=== PATIENT | female | born 1990 | race Two or more races ===

== ENCOUNTER 2022-03-13 00:18 | Emergency (ER) | payer MEDICAID | END 2022-03-13 00:37 | disposition left against medical advice (07) | LOC: ER 00:18 | DX: O20.8 Other hemorrhage in early pregnancy (principal); Z3A.16 16 weeks gestation of pregnancy; Z53.21 Procedure and treatment not carried out due to patient leaving prior to being seen by health care provider ==

== ENCOUNTER 2024-07-29 15:58 | Emergency (ER) | payer MEDICAID ==
[~2024-07-29] VITALS: Ht 160 cm; Wt 68.5 kg
[2024-07-29 16:28] VITALS: BP 113/65; PULSE 100; RESP 18; TEMP 98; O2SAT 97
[2024-07-29 16:29] VITALS: PULSE 117
--- NOTE | 2024-07-29 16:29 | ED.PDOC ---
History of Present Illness HPI Comments 34-year-old female with PMHx Asthma presents with a chief complaint of SOB and nausea while currently being . Patient states that she is currently 37 weeks . Patient reports that she was sent over from Labor and Delivery to be cleared for her SOB prior to their own evaluation. Patient is sating well on room air and does not need/use supplemental oxygen. Patient endorses nausea, but denies any active emesis episodes. Vital signs were stable on arrival. Chief Complaint: Shortness of Breath Time Seen by MD: 16:10 Primary Care Provider: CAR Reviewed Notes: Nurses Notes, Medications, Allergies Allergies: Coded Allergies: NO KNOWN ALLERGIES (Unverified , 07/29/24) Information Source: Patient Mode of Arrival: Ambulatory Severity: Moderate Timing: Days Duration: Since onset Prehospital treatment: None Past Medical History PAST MEDICAL HISTORY: Asthma Past Medical History (Other): Patient states she is currently 37 weeks . Surgical History: Denies all surgeries MARRIAGE AND FAMILY TEACHER History: Denies all MARRIAGE AND FAMILY TEACHER Hx Family History Family History: Reviewed,noncontributory to illness Social History Smoker: Non-Smoker Alcohol: Denies ETOH Use Drugs: Denies Drug Use Lives In: Home Constitutional: denies: chills, diaphoresis, fatigue, fever, malaise, sweats, weakness, others EENTM: denies: blurred vision, double vision, ear bleeding, ear discharge, ear drainage, ear pain, ear ringing, eye pain, eye redness, hearing loss, mouth p ain, mouth swelling, nasal discharge, nose bleeding, nose congestion, nose pain, photophobia, tearing, throat pain, throat swelling, voice changes, others Respiratory: reports: shortness of breath; denies: cough, hemoptysis, orthopnea, SOB at rest, SOB with excertion, stridor, wheezing, others Cardiovascular: reports: chest pain; denies: dizzy spells, diaphoresis, Dyspnea on exertion, edema, irregular heart beat, left arm pain, lightheadedness, palpitations, PND, syncope, others Gastrointestinal: reports: nausea; denies: abdomen distended, abdominal pain, blood streaked bowels, constipated, diarrhea, dysphagia, difficulty swallowing, hematemesis, melena, poor appetite, poor fluid intake, rectal bleeding, rectal pain, vomiting, others Genitourinary: reports: ; denies: abnormal vagina bleeding, burning, dyspareunia, dysuria, flank pain, frequency, hematuria, incontinence, pain, vagina discharge, urgency, others Neurological: denies: dizziness, fainting, headache, left sided numbness, left sided weakness, numbness, paresthesia, pre-existing deficit, right sided num bness, right sided weakness, seizure, speech problems, tingling, tremors, weakness, others Musculoskeletal: denies: back pain, gout, joint pain, joint swelling, muscle pain, muscle stiffness, neck pain, others Integumetry: denies: bruises, change in color, change in hair/nails, dryness, laceration, lesions, lumps, rash, wounds, others Allergic/Immunocompromised: denies: Difficulty Healing, Frequent Infections, Hives, Itching, others Hematologic/Lymphatic: denies: anemia, blood clots, easy bleeding, easy bruising, swollen glands, others Endocrine: denies: excessive hunger, excessive sweating, excessive thirst, excessive urination, flushing, intolerance to cold, intolerance to heat, unexplained weight gain, unexplained weight loss, others Psychiatric: denies: anxiety, bipolar disorder, depression, hopeless, panic disorder, schizophrenia, sleepless, suicidal, others All Other Systems: Reviewed and Negative Physical Exam General Appearance: Moderate Distress (Tmsa-rh-punvdust distress due to some mild shortness a breath and chest pain concerns.), Normal HEENT: Normal ENT Inspection, Pharynx Normal, TMs Normal Neck: Full Range of Motion, Non-Tender, Normal, Normal Inspection Respiratory: Chest Non-Tender, Lungs Clear, No Accessory Muscle Use, No Respiratory Distress, Normal Breath Sounds, Other (Unremarkable auscultation bilateral lung peña.) Cardiovascular: No Edema, No JVD, No Murmur, No Gallop, Normal Peripheral Pulses, Regular Rate/Rhythm Breast Exam: Deferred Gastrointestinal: Other (Patient displays a very advanced . No signs of trauma.) Genitalia: Deferred Pelvic: Deferred Rectal: Deferred Extremities: No calf tenderness, Normal capillary refill, Normal inspection, Normal range of motion, Non-tender, No pedal edema Neurologic: Alert, No Motor Deficits, Normal Affect, Normal Mood, No Sensory Deficits Cerebellar Function: Normal Reflexes: Normal Skin: Dry, Normal Color, Warm Lymphatic: No Adenopathy Was a procedure done? Was a procedure done?: No EKG EKG : Pulse Rate (adult): 117 [place]: Normal Cardiac Rhythm: ST Block: None Hypertrophy: None ST: Normal Differential Dx Considerations may include: Sepsis, electrolyte abnormality, upper respiratory infection, pain of , chest pain, shortness of breath X-Ray, Labs, Meds, VS Vital Signs Date Time Temp Pulse Resp B/P (MAP) Pulse Ox O2 Delivery O2 Flow Rate FiO2 07/29/24 17:04 18 96 Room Air* 0 21 07/29/24 16:29 117 07/29/24 16:28 100 18 97 Room Air* 0 21 07/29/24 16:28 98.0 100 18 113/65 (81) 97 98.0 07/29/24 16:12 117 07/29/24 15:59 98.0 99 18 129/75 (93) 100 Lab Test 07/29/24 16:23 Range/Units White Blood Count 7.9 4.4-10.8 10^3/uL Red Blood Count 4.49 4.0-5.20 10^6/uL Hemoglobin 11.3 L 12.2-16.2 g/dL Hematocrit 35.4 L 36.0-46.0 % Mean Corpuscular Volume 78.8 L 80.0-100.0 fL Mean Corpuscular Hemoglobin 25.1 L 28.0-32.0 pg Mean Corpuscular Hemoglobin Concent 31.8 L 32.0-36.0 g/dL Red Cell Distribution Width 16.0 H 11.8-14.3 % Platelet Count 158 140-450 10^3/uL Mean Platelet Volume 10.2 6.9-10.8 fL Neutrophils (%) (Auto) 69.1 37.0-80.0 % Lymphocytes (%) (Auto) 22.6 10.0-50.0 % Monocytes (%) (Auto) 4.7 0.0-12.0 % Eosinophils (%) (Auto) 3.3 0.0-7.0 % Basophils (%) (Auto) 0.3 0.0-2.0 % Neutrophils # (Auto) 5.5 1.6-8.6 10 ^3/uL Lymphocytes # (Auto) 1.8 0.4-5.4 10 ^3/uL Monocytes # (Auto) 0.4 0-1.3 10 ^3/uL Eosinophils # (Auto) 0.3 0-0.8 10 ^3/uL Basophils # (Auto) 0 0-0.2 10 ^3/uL Nucleated Red Blood Cells 0.1 % D-Dimer, Quantitative 1.84 H 0.0-0.49 mg/L FEU Sodium Level 137 136-145 mmol/L Potassium Level 3.9 3.5-5.1 mmol/L Chloride Level 105 98-107 mmol/L Carbon Dioxide Level 21 20-31 mmol/L Anion Gap 11 5-15 Blood Urea Nitrogen 6 L 9-23 mg/dL Creatinine 0.60 0.550-1.02 mg/dL Glomerular Filtration Rate Calc 121 >90 mL/min BUN/Creatinine Ratio 10.0 10.0-20.0 Serum Glucose 180 H 74-106 mg/dL Calcium Level 9.4 8.7-10.4 mg/dL Troponin I High Sensitivity < 3 L </=34 ng/L B-Type Natriuretic Peptide 20.87 0-100 pg/mL Current Medications Medications (Trade) Dose Ordered Sig/Valentino Route Start Time Stop Time Status Last Admin Albuterol (Ventolin Medneb) 5 mg ONCE ONCE NEB 07/29/24 16:15 07/29/24 16:16 DC 07/29/24 17:04 Ipratropium [place] (Atrovent Medneb) 0.5 mg ONCE ONCE NEB 07/29/24 16:15 07/29/24 16:16 DC 07/29/24 17:03 X-Ray, Labs, Meds, VS Comment Patient had good improvement of her shortness a breath concerns status post breathing treatment. All studies performed the ED were evaluated by me personally. Patient's EKG revealed a sinus tachycardia with a rate of 117. Atrial premature complex noted with probable left atrial enlargement. OK interval of one two and a QT interval of 321. Laboratories revealed a mild anemia with a mild elevated D-dimer. Discussed the case with Dr. Jones. Advised her of initial presentation as well as EKG and laboratory findings. She advised that if the patient was cleared from OB, patient can be discharged with a follow up with her public health professor Dr. Williamson. Discussed the patient has clearance from OB and was told that the fetus was in good health. Time of 1ST Reevaluation: 18:59 Reevaluation 1ST: Improved Consultation: PCP, service desk associate Patient Education/Counseling: Diagnosis, Treatment, Prognosis Family Education/Counseling: Diagnosis, Treatment, Prognosis Departure 1 Departure Time of Disposition: 18:59 Impression: Primary Impression: Asthma exacerbation Additional Impression: Chest pain during Disposition: HOME / SELF CARE / HOMELESS Condition: Stable Additional Instructions: Advised patient to follow up with public health professor for continued evaluation and management of her near term . e-Prescriptions Albuterol Sulfate (Albuterol Sulfate Hfa) 108 Mcg/Act Aer 108 MCG IN Q4HP PRN, #1 AER Prov: RIKKI BARRIENTOS PAC 07/29/24 Discharged With: Self, Spouse Critical Care Note Critical Care Time?: No Stability Stability form required: No Heart Score Heart Score: Heart Score Response (Comments) Value History Slightly Suspicious 0 EKG Repolarization Disturb 1 Age <45 0 Risk Factors No known risk factors 0 Troponin Normal limit 0 Total 1 I personally scribed for RIKKI BARRIENTOS PAC ([email or web address]) on 07/29/24 at 16:29. Electronically submitted by Blair Trevino ([email or web address]). RIKKI BARRIENTOS PAC Jul 29, 2024 16:29
[2024-07-29 16:43] LABS: Basophils # (auto) 0 10 ^3/uL (0-0.2); Eosinophils # (auto) 0.3 10 ^3/uL (0-0.8); Hemoglobin 11.3 g/dL (12.2-16.2); Lymphocytes # (auto) 1.8 10 ^3/uL (0.4-5.4); Mean Corpuscular Hemoglobin 25.1 pg (28.0-32.0); Mean Corpuscular Hgb Conc. 31.8 g/dL (32.0-36.0); Monocytes # (auto) 0.4 10 ^3/uL (0-1.3); Neutrophils # (auto) 5.5 10 ^3/uL (1.6-8.6)
[2024-07-29 16:44] LABS: Basophils % (auto) 0.3 % (0.0-2.0); Eosinophils % (auto) 3.3 % (0.0-7.0); Hematocrit 35.4 % (36.0-46.0); Lymphocytes % (auto) 22.6 % (10.0-50.0); Mean Corpuscular Volume 78.8 fL (80.0-100.0); Monocytes % (auto) 4.7 % (0.0-12.0); Neutrophils % (auto) 69.1 % (37.0-80.0); Nucleated Red Blood Cells % 0.1 %; Platelet Count (auto) 158 10^3/uL (140-450); Red Blood Cells 4.49 10^6/uL (4.0-5.20); White Blood Cell 7.9 10^3/uL (4.4-10.8)
[2024-07-29 16:45] LABS: Anion Gap 11 (5-15); Carbon Dioxide 21 mmol/L (20-31); Chloride 105 mmol/L (98-107); Potassium 3.9 mmol/L (3.5-5.1); Sodium 137 mmol/L (136-145)
[2024-07-29 16:46] LABS: Calcium 9.4 mg/dL (8.7-10.4)
[2024-07-29 16:53] LABS: Blood Urea Nitrogen 6 mg/dL (9-23); Glucose 180 mg/dL (74-106)
[2024-07-29] MEDS: IPRATROPIUM BROM 0.5 MG/2.5ML INH SOL NEB ONE (17:03)
[2024-07-29 17:04] VITALS: RESP 18; O2SAT 96
[2024-07-29] MEDS: ALBUTEROL SULF 2.5 MG/0.5ML(0.5%) NEB SOLN NEB ONE (17:04)
[2024-07-29] MEDS ORDERED: ALBU108A5 IN (19:01)
--- NOTE | 2024-08-01 08:13 | ECG ---
[facility] Date: 2024-07-29 Test Time: 16:12:24 Pat Name: RAE VICKERS Department: ER Room: Gender: F Chemical Operations Specialist: TIM : 1990 Requested By: RIKKI BARRIENTOS Order Number: [id number] Reading MD: Daniel Payne Measurements Intervals [place] Rate: 117 P: 36 MI: 110 QRS: 84 QRSD: 80 T: 29 QT: 321 QTc: 448 Interpretive Statements Sinus tachycardia Atrial premature complex Probable left atrial enlargement RSR' in V1 or V2, right VCD or RVH Baseline wander in lead(s) V2,V5,V6 Electronically Signed On 08-01-2024 8:23:24 PST by Daniel Payne Please click the below link to view image of tracing.
== END 2024-07-29 19:30 | disposition home or self-care (01) ==
LOC: ER 15:58
DX: O99.413 Diseases of the circulatory system complicating pregnancy, third trimester (principal); O99.513 Diseases of the respiratory system complicating pregnancy, third trimester; J45.901 Unspecified asthma with (acute) exacerbation; Z3A.37 37 weeks gestation of pregnancy
CPT/HCPCS: 36415; 80048; 83880; 84484; 85025; 85379; 93005; 94640

== ENCOUNTER 2024-08-05 11:30 | Observation (INO) | payer MEDICAID ==
[~2024-08-05 11:30] MED LIST: ALBU108A5 IN
[2024-08-05 12:51] LABS: Urine Bacteria None Seen /hpf (None Seen)
[2024-08-05 12:57] LABS: Basophils # (auto) 0 10 ^3/uL (0-0.2); Basophils % (auto) 0.2 % (0.0-2.0); Eosinophils # (auto) 0.2 10 ^3/uL (0-0.8); Eosinophils % (auto) 3.7 % (0.0-7.0); Hematocrit 27.9 % (36.0-46.0); Hemoglobin 8.9 g/dL (12.2-16.2); Lymphocytes # (auto) 1.5 10 ^3/uL (0.4-5.4); Lymphocytes % (auto) 22.8 % (10.0-50.0); Mean Corpuscular Hemoglobin 25.2 pg (28.0-32.0); Mean Corpuscular Volume 78.9 fL (80.0-100.0); Monocytes # (auto) 0.4 10 ^3/uL (0-1.3); Monocytes % (auto) 5.4 % (0.0-12.0); Neutrophils # (auto) 4.6 10 ^3/uL (1.6-8.6); Neutrophils % (auto) 67.9 % (37.0-80.0); Nucleated Red Blood Cells % 0.3 %; Platelet Count (auto) 120 10^3/uL (140-450); Red Blood Cells 3.53 10^6/uL (4.0-5.20); Red Cell Distribution Width 16.8 % (11.8-14.3); White Blood Cell 6.8 10^3/uL (4.4-10.8)
[2024-08-05 13:05] LABS: Urine Blood Negative /uL (Negative); Urine Clarity Turbid (Clear); Urine Color Colorless (Yellow); Urine Protein, UAD Negative (Negative); Urine Specific Gravity 1.003 (1.001-1.035); Urine Squamous Epithelial Cell MOD /hpf (<5); Urine Urobilinogen Normal (Negative); Urine WBC 4 /HPF (0-5)
[2024-08-05 13:14] LABS: INR 0.89 (0.9-1.15); Partial Thromboplastin Time 25.4 SEC (24.5-34.5); Prothrombin Time 9.5 sec (9.3-11.8)
[2024-08-05 13:21] LABS: Amphetamine Screen, Urine Neg (NEGATIVE)
[2024-08-05 13:23] LABS: Barbiturate Scree,Urine Neg (NEGATIVE); Benzodiazephine Screen, Urine Neg (NEGATIVE); Cannabinoid Screen, Urine Neg (NEGATIVE); Cocaine Screen, Urine Neg (NEGATIVE); Opiate Scree,Urine Neg (NEGATIVE); Phencyclidine Screen, Urine Neg (NEGATIVE)
[2024-08-05 14:05] LABS: Alanine Aminotransferase 13 U/L (7-40); Albumin 3.4 g/dL (3.2-4.8); Anion Gap 8 (5-15); Aspartate Aminotransferase 23 U/L (13-40); Bilirubin, Total 0.3 mg/dL (0.2-1.0); Carbon Dioxide 22 mmol/L (20-31); Potassium 3.7 mmol/L (3.5-5.1); Sodium 139 mmol/L (136-145); Uric Acid 6.7 mg/dL (3.1-7.8)
[2024-08-05 14:08] LABS: Alkaline Phosphatase 165 U/L (46-116); BUN/Creatinine Ratio 9.3 (10.0-20.0); Blood Urea Nitrogen < 5 mg/dL (9-23); Calcium 8.7 mg/dL (8.7-10.4); Chloride 109 mmol/L (98-107); Glucose 133 mg/dL (74-106); Total Protein 5.4 g/dL (5.7-8.2)
--- NOTE | 2024-08-05 14:47 | DVH ---
LIMITED OB ULTRASOUND > 14 WKS: HISTORY: No care TECHNIQUE: Multiple real-time grayscale images of the gravid uterus with duplex Doppler color flow an d M-mode spectral analysis. TRANSDUCER: Transabdominal COMPARISON: None FINDINGS: IUP single live fetus at 35 weeks and 2 days based on composite averages of the BPD, head circumferen ce, abdominal circumference and femur length Estimated weight 2816 grams heart rate 142 beats per minute MASOOD 16.8 cm Cervix is not visualized. Cephalic Presentation Anterior Placenta without previa or abruption. IMPRESSION: IUP single live fetus at 35 weeks and 2 days AUA corresponding to an FLAQUITO of 09/07/2024. Femur length measures slightly small; nonspecific.
--- NOTE | 2024-08-05 15:53 | DVHDS2 ---
Physician Discharge Progress N Final Diagnosis: 36WKS LABOR CHECK,NO CARE Operations or Procedures: Operations or Procedures NST 36WKS,SONO Condition on Discharge: Good Disposition: Home Discharge Instructions: Diet: Consistent carbohydrate Activity: Light activity Medications: NA Follow Up Care: Specialist: ANU PIA WITH OB Discharge Statement: "Patient was advised to return to the ER or call 911 if any headaches, dizziness, shortness of breath, chest pain, abdominal pain, bleeding, fevers, or worsening of medical condition. Patient was counseled about treatment plan, medications, possible side effects, patientverbalized understanding. All questions were answered to the best of my ability. This discharge took greater then 30 minutes in planning, reviewing documentation, counseling the patient, and discussing with other team members." Visit Coding OBGYN Date of Service: Aug 05, 2024 Billing Provider: ROLANDA RAZO DO ROPE MAKING MACHINE OPERATOR Common Visit Codes: 41473-AJNQKVCBCU INP/OBS CARE(MOD) ROPE MAKING MACHINE OPERATOR Procedure Codes: 36694-31- NON-STRESS TEST ROLANDA RAZO DO Aug 05, 2024 15:53
[2024-08-05 15:58] LABS: Creatinine, Urine 16.03 mg/dL (30.0-125.0); Urine Protein/Creatinine Ratio 0.37
[2024-08-05 16:00] LABS: Protein, Urine < 6.0 mg/dL (1-14)
[2024-08-06 07:07] LABS: RPR Non Reactive (Non Reactive)
[2024-08-08 11:07] LABS: Treponema Pallidum Ab LC Non Reactive (Non Reactive)
== END 2024-08-05 15:45 | disposition home or self-care (01) ==
LOC: LDRP 11:30
PROVIDERS: ADMIT Obstetrics & Gynecology; ATTEND Obstetrics & Gynecology
DX: O62.9 Abnormality of forces of labor, unspecified (principal); O99.891 Other specified diseases and conditions complicating pregnancy; M54.9 Dorsalgia, unspecified; R51.9 Headache, unspecified; R11.0 Nausea; R53.1 Weakness; Z3A.36 36 weeks gestation of pregnancy; Z79.899 Other long term (current) drug therapy; Z98.890 Other specified postprocedural states
CPT/HCPCS: 36415; 59025; 76805; 80053; 80307; 81001; 81002; 82570; 83036; 84156; 84550; 85025; 85610; 85730; 86592; 86703; 86762; 86780; 86803; 86850; 86900; 86901; 87081; 87340; 94760; G0378

== ENCOUNTER 2024-08-13 13:10 | Inpatient (IN) | payer MEDICAID ==
[~2024-08-13] VITALS: Ht 152.4 cm; Wt 68.0 kg
[2024-08-13] VITALS (8 sets, daily range): BP systolic 120–145; BP diastolic 86–97; PULSE 88–108; RESP 10–16; TEMP 98.5; O2SAT 97–99
[2024-08-13] MEDS ORDERED: ceFAZolin 2 GM/D5W50ml 50 ML IV ONE (14:00)
--- NOTE | 2024-08-13 14:33 | DVHHP2 ---
OB CC & HPI Date Date of Admission: Aug 13, 2024 Patient Identification: : 8 Para: 5 EDC: Sep 01, 2024 EGA: 37wks Chief Complaints: Reason for admission: active labor Admission Nurse Assessment Rev: No History of Present Complaints pt presents in labor,c/o ucs q2-3 min,no rom or vag bleeding .pt has no care .she saw dr rojas only once and has had hx of gdm x3 with all preg.her hgba1c was hig and it is definitley suspicious for gdm that is not treated . pt has been seeing dr machado intermittently telling him that she sees our provider at [facility] .she was told by dr machado that her baby id macrosomic and might have shoulde rdystocia because of this reason she is requesting pcs with btl Past Medical History Cardiac: No pertinent Hx Pulmonary: No pertinent Hx Central Nervous System: No pertinent Hx GI: No pertinent Hx Hemotology/Oncology: No pertinent Hx Hepatobiliary: No pertinent Hx Psychiatric: No pertinent Hx Musculoskeletal: No pertinent Hx Rheumotologic: No pertinent Hx Infectious Disease: No peritnent Hx ENT: No pertinent Hx Renal/: No pertinent Hx Endocrine: No pertinent Hx Dermatology: No pertinent Hx Past Surgical History: No pertinent Hx OB History OB History Care: None Ultrasounds: Abnormal US findings Obstetrical Complications: Gestational Diabetes Medical Complications: None Allergies: Coded Allergies: NO KNOWN ALLERGIES (Unverified , 07/29/24) Home Meds Active Scripts Albuterol Sulfate (Albuterol Sulfate Hfa) 108 Mcg/Act Aer, 108 MCG IN Q4HP PRN, #1 AER Prov:RIKKI BARRIENTOS PAC 07/29/24 Current Medications Current Medications Medications (Trade) Dose Ordered Sig/Valentino Route PRN Reason Start Time Stop Time Status Last Admin Lactated Ringer's 1,000 ml @ 125 mls/hr Q8H IV 08/13/24 14:00 Family & Social History Family/Social History Blood Type: Unknown Rubella: unknown RPR/VDRL: Unknown GBS Status: Unknown HBsAG: Unknown Review of Systems Constitutional: No symptom reported Ears, Nose, & Throat: No symptom reported Eyes: No symptom reported Pulmonary/Respiratory: No symptom reported Cardiovascular: No symptom reported Gastrointestinal: No symptom reported Genitourinary: No symptom reported Musculoskeletal: No symptom reported Skin: No symptom reported Psychiatric: No symptom reported Endocrine: No symptom reported Hemotologic/Lymphatic: No symptom reported OB Admission Exam Physical Exam HEENT: TMs Normal, Fontanelles Normal, Nasal Mucosa Normal, Eyes non-injected, Oropharynx Normal, PERRLA, Moist Membranes, EOMI Heart: Rhythm Normal Lungs: Clear Abdomen: Non tender Extremities: Normal Reflexes: Normal Cervical Dilatation: 1cm Effacement: 25% Station: -3 Membranes: Intact Heart Rate: 130's Accelerations: Accelerations Present Decelerations: No Decelerations Short Term Variability: Present Nursing Home Variability: Average (6-25) Contractions on Admission: < 5 Minutes Apart Intensity: Moderate OB Plan Plan Admitting Diagnosis: Primary CSection for macrosomia no care hx of gdmx3 previous preg ,suspect gdm with current preg desires btl Plan: Section Other Plan: pltcs informed consent obtained ,risks and complication of cs including pe,dvt,bleeding,infection rds in baby and failure rate with filschie clip d/w pt .pt fully understands and wishes to proceed with cs Visit Coding OBGYN Date of Service: Aug 13, 2024 Billing Provider: ROLANDA RAZO DO BUSINESS MANAGEMENT CONSULTANT Common Visit Codes: 60934-JVP/OBS SAME DATE (HIGH) BUSINESS MANAGEMENT CONSULTANT Consultation Codes: 22299-A/U INPATIENT CONSULT (HIGH) BUSINESS MANAGEMENT CONSULTANT Procedure Codes: 51950-05- NON-STRESS TEST ROLANDA RAZO DO Aug 13, 2024 14:33
[2024-08-13] MEDS ORDERED: IBUP-1456 PO (14:35)
[2024-08-13] MEDS ORDERED: HYDR-4072 PO (14:35)
[2024-08-13] MEDS ORDERED: DOCU-94 PO (14:35)
[2024-08-13 14:57] LABS: Basophils # (auto) 0 10 ^3/uL (0-0.2); Eosinophils # (auto) 0.2 10 ^3/uL (0-0.8); Hemoglobin 8.9 g/dL (12.2-16.2); Lymphocytes # (auto) 1.6 10 ^3/uL (0.4-5.4); Neutrophils # (auto) 4.1 10 ^3/uL (1.6-8.6)
[2024-08-13 14:59] LABS: Basophils % (auto) 0.1 % (0.0-2.0); Eosinophils % (auto) 3.4 % (0.0-7.0); Lymphocytes % (auto) 25.1 % (10.0-50.0); Mean Corpuscular Hemoglobin 25.4 pg (28.0-32.0); Mean Corpuscular Hgb Conc. 32.9 g/dL (32.0-36.0); Mean Corpuscular Volume 77.2 fL (80.0-100.0); Monocytes # (auto) 0.4 10 ^3/uL (0-1.3); Monocytes % (auto) 6.4 % (0.0-12.0); Nucleated Red Blood Cells % 0.3 %; Platelet Count (auto) 100 10^3/uL (140-450); Red Blood Cells 3.49 10^6/uL (4.0-5.20); Red Cell Distribution Width 17.1 % (11.8-14.3); White Blood Cell 6.3 10^3/uL (4.4-10.8)
[2024-08-13 15:09] LABS: Urine Bacteria None Seen /hpf (None Seen)
[2024-08-13 15:10] LABS: Alanine Aminotransferase 10 U/L (7-40); Albumin 3.5 g/dL (3.2-4.8); Anion Gap 10 (5-15); Aspartate Aminotransferase 19 U/L (13-40); Bilirubin, Total 0.4 mg/dL (0.2-1.0); Calcium 8.8 mg/dL (8.7-10.4); Carbon Dioxide 22 mmol/L (20-31); Glucose 88 mg/dL (74-106); Potassium 3.7 mmol/L (3.5-5.1); Sodium 141 mmol/L (136-145); Total Protein 5.9 g/dL (5.7-8.2)
[2024-08-13] MEDS ORDERED: fentaNYL CITRATE 100 MCG/2 ML VL ONE (15:11)
[2024-08-13] MEDS ORDERED: MORPHINE SULF PF 5 MG/10 ML VIAL ONE (15:11)
[2024-08-13 15:14] LABS: INR 0.9 (0.9-1.15); Partial Thromboplastin Time 26.2 SEC (24.5-34.5); Prothrombin Time 9.6 sec (9.3-11.8)
[2024-08-13] MEDS ORDERED: ONDANSETRON HCL 4 MG/2 ML VIAL IV PRN (15:15)
[2024-08-13] MEDS ORDERED: ceFAZolin 1GM/50ML 50 ML IV SCH (15:15)
[2024-08-13 15:16] LABS: Alkaline Phosphatase 197 U/L (46-116); BUN/Creatinine Ratio 6.9 (10.0-20.0); Blood Urea Nitrogen < 5 mg/dL (9-23); Chloride 109 mmol/L (98-107)
[2024-08-13 15:29] LABS: Urine Blood Negative /uL (Negative); Urine Clarity Clear (Clear); Urine Color Light-Yellow (Yellow); Urine Protein, UAD Negative (Negative); Urine Specific Gravity 1.004 (1.001-1.035); Urine Squamous Epithelial Cell FEW /hpf (<5); Urine Urobilinogen Normal (Negative); Urine WBC < 1 /HPF (0-5)
[2024-08-13] MEDS: miSOPROStol 100 mcg TAB ONE (15:36)
[2024-08-13 15:37] LABS: Amphetamine Screen, Urine Neg (NEGATIVE)
[2024-08-13] MEDS: METHYLERGONOVINE MALEATE 0.2 MG/ML AMP IM ONE (15:37)
[2024-08-13 15:38] LABS: Barbiturate Scree,Urine Neg (NEGATIVE); Benzodiazephine Screen, Urine Neg (NEGATIVE); Cannabinoid Screen, Urine Neg (NEGATIVE); Cocaine Screen, Urine Neg (NEGATIVE); Opiate Scree,Urine Neg (NEGATIVE); Phencyclidine Screen, Urine Neg (NEGATIVE)
[2024-08-13] MEDS ORDERED: HYDROmorphone HCL 2 MG/ML VL/or syr ONE (16:00)
--- NOTE | 2024-08-13 16:09 | DVHOP2 ---
Operative Report DATE OF OPERATION: 08/13/24 PREOPERATIVE DIAGNOSES: 1. iup at 37wks in labor,macrosomia desires pc swith b tl,no care,hx of gdmx3,suspecty gdm untreated,anemia 2. Desires bilateral tubal ligation POSTOPERATIVE DIAGNOSES: 1. same 2. Desires bilateral tubal ligation PROCEDURES: primary section with bilateral tubal ligation via Filschie Clips SURGEON: Rolanda Razo D.O./charlotte ANESTHESIOLOGIST: Dr. barajas TYPE OF ANESTHESIA : general ESTIMATED BLOOD LOSS: 1200 mL CONSENT: The patient was informed of the risks and benefits of the procedure. These include but are not limited to , complications of anesthesia, postoperative infection, incomplete relief of symptoms, recurrence of symptoms, damage to blood vessels, nerves and tendons, deep venous thrombosis, pulmonary embolism and possible need for repeat surgery in the future. Surgery was opted. FINDINGS: Baby [g] with apgars [8] and [9]. Grossly normal appearing tubes and ovaries. TISSUE TO PATHOLOGY: Placenta. PROCEDURE IN DETAIL: The patient was taken to the operating room where she was placed under spinal anesthesia. She was then prepped and draped in the usual sterile manner in supine position with a leftward tilt. A Pfannenstiel skin incision was then made 2 cm above the symphysis pubis. This incision was carried to the underlying layer of fascia. The fascia was nicked in the midline and the incision was extended laterally. The superior aspect of the fascial incision was grasped and elevated. Underlying rectus muscle was dissected off bluntly. The same procedure was done to the inferior aspect of the fascial incision. The rectus muscles were then in the midline. Peritoneum was identified and entered. Peritoneal incision was extended superiorly and inferiorly with good visualization of the bladder. Bladder blade was inserted. Vesicouterine peritoneum was identified and entered. Lower uterine segment was incised in a transverse fashion. The infant was delivered from vertex presentation. The was baby [g] with Apgars of [8] and [9]. Placenta was then removed manually. Uterus was exteriorized and cleared off all clots and debris.there was alot of vascularity due to varicose veins which were bleeding due to their location in proximty of lower uterine segment .pt had started with low hgb subsequently 2 units of prbc was ordered to be given. Uterine incision was repaired using 0 Vicryl in a double-layered fashion. No bleeding was noted. Bilateral tubal ligation was then performed using [place]. Placed in the ampullary region and identifying the fimbria distally. The isthmic portion of the right tube was clipped using Filschie Clip. The same procedure was done on the opposite side. No bleeding was noted. Peritoneum was closed using 0 Vicryl, fascia was closed using 0 [place], and skin was closed using chao. Estimated blood loss was noted to be 1200 mL. The patient tolerated the procedure well. She was taken to the recovery room in stable condition. Visit Coding OBGYN Date of Service: Aug 13, 2024 Billing Provider: ROLANDA RAZO DO UNION ORGANISER Common Visit Codes: 38317-PWL/OBS SAME DATE (HIGH) UNION ORGANISER Consultation Codes: 15965-X/U INPATIENT CONSULT (HIGH) UNION ORGANISER Procedure Codes: 96327-IYKCO @ TIME OF , 86496-L-YQBWVYD DELIVERY ONLY ROLANDA RAZO DO Aug 13, 2024 16:09
--- NOTE | 2024-08-13 16:12 | POSTOP ---
Post-Operative Note Post-Operative Note Preop Diagnosis iup at 37wks in labor,desires pcs w/btl due to macrosomia,no care,gdmx3 in previous preg,untreated gdm this preg,anemia Postop Diagnosis: same Operation performed pltcs with btl Specimen baby girl,apgars 89-9 Anesthesia: General Anesthesiologist: karl Blood Loss(fluid mgmt) 1200ml Surgeon Sarah Koo [place] Instructor charlotte Implant filschie Complications & Mgmt none Date 08/13/24 Time 16:09 Visit Coding OBGYN Date of Service: Aug 13, 2024 Billing Provider: SARAH KOO DO SORT MANAGER Common Visit Codes: 24078-UNP/OBS SAME DATE (HIGH) SORT MANAGER Consultation Codes: 07104-W/U INPATIENT CONSULT (HIGH) SORT MANAGER Procedure Codes: 41215-POYXE @ TIME OF , 44460-H-VJRVAPM DELIV BERT ONLY SARAH KOO DO Aug 13, 2024 16:12
[2024-08-13] MEDS ORDERED: HYDROmorphone HCL 2 MG/ML VL/or syr IV PRN ×2 (16:45)
[2024-08-13] MEDS ORDERED: DIPHENOXYLATE W/ATROPINE 2.5 MG TAB PO SCH (17:00)
[2024-08-13] MEDS: CARBOPROST TROMETHAMINE 250 MCG/1ML VIAL IM ONE (17:01)
[2024-08-13] MEDS: HYDROmorphone HCL 2 MG/ML VL/or syr IV PRN ×2 (17:08→20:00)
[2024-08-13] MEDS: DIPHENOXYLATE W/ATROPINE 2.5 MG TAB ONE (17:20)
[2024-08-13] MEDS ORDERED: ACETAMINOPHEN IV 1000 MG/100ML (10MG/ML) IV PRN (18:30)
[2024-08-13] MEDS ORDERED: MORPHINE SULFATE 4 MG/ML SYR/VIAL IV PRN (18:30)
[2024-08-13] MEDS ORDERED: ACETAMINOPHEN IV 100 ML IV ONE (18:54)
[2024-08-13] MEDS: ACETAMINOPHEN IV 100 ML IV ONE (18:58)
[2024-08-13 20:02] LABS: Basophils # (auto) 0 10 ^3/uL (0-0.2); Eosinophils # (auto) 0.2 10 ^3/uL (0-0.8); Hematocrit 32.4 % (36.0-46.0); Hemoglobin 10.3 g/dL (12.2-16.2); Red Blood Cells 3.95 10^6/uL (4.0-5.20); Red Cell Distribution Width 17.4 % (11.8-14.3); White Blood Cell 11.5 10^3/uL (4.4-10.8)
[2024-08-13 20:03] LABS: Basophils % (auto) 0.2 % (0.0-2.0); Eosinophils % (auto) 1.7 % (0.0-7.0); Lymphocytes # (auto) 1.7 10 ^3/uL (0.4-5.4); Lymphocytes % (auto) 15.1 % (10.0-50.0); Mean Corpuscular Hemoglobin 26.1 pg (28.0-32.0); Mean Corpuscular Hgb Conc. 31.7 g/dL (32.0-36.0); Mean Corpuscular Volume 82.2 fL (80.0-100.0); Monocytes # (auto) 0.6 10 ^3/uL (0-1.3); Monocytes % (auto) 5.6 % (0.0-12.0); Neutrophils # (auto) 8.9 10 ^3/uL (1.6-8.6); Neutrophils % (auto) 77.4 % (37.0-80.0); Nucleated Red Blood Cells % 0.1 %; Platelet Count (auto) 109 10^3/uL (140-450)
[2024-08-13] MEDS: LACTATED RINGER'S 1,000 ML IV SCH (22:00)
[2024-08-13] MEDS: ceFAZolin 1GM/50ML 50 ML IV SCH (23:00)
[2024-08-13 23:08] LABS: Basophils # (auto) 0.1 10 ^3/uL (0-0.2); Eosinophils # (auto) 0.1 10 ^3/uL (0-0.8); Monocytes # (auto) 0.6 10 ^3/uL (0-1.3)
[2024-08-13 23:09] LABS: Basophils % (auto) 0.9 % (0.0-2.0); Hematocrit 31.5 % (36.0-46.0); Lymphocytes # (auto) 1.6 10 ^3/uL (0.4-5.4); Lymphocytes % (auto) 14.2 % (10.0-50.0); Mean Corpuscular Hemoglobin 25.7 pg (28.0-32.0); Mean Corpuscular Hgb Conc. 31.7 g/dL (32.0-36.0); Mean Corpuscular Volume 81.3 fL (80.0-100.0); Monocytes % (auto) 5.6 % (0.0-12.0); Neutrophils # (auto) 8.8 10 ^3/uL (1.6-8.6); Neutrophils % (auto) 78.3 % (37.0-80.0); Nucleated Red Blood Cells % 0.1 %; Platelet Count (auto) 115 10^3/uL (140-450); Red Blood Cells 3.88 10^6/uL (4.0-5.20); Red Cell Distribution Width 17.2 % (11.8-14.3); White Blood Cell 11.3 10^3/uL (4.4-10.8)
[2024-08-14] VITALS (14 sets, daily range): BP systolic 120–138; BP diastolic 73–97; PULSE 79–101; RESP 16; TEMP 98.1–98.9; O2SAT 97–100
[2024-08-14] MEDS: ACETAMINOPHEN IV 1000 MG/100ML (10MG/ML) IV PRN (02:59)
[2024-08-14 05:53] LABS: Basophils # (auto) 0 10 ^3/uL (0-0.2); Eosinophils # (auto) 0.1 10 ^3/uL (0-0.8); Eosinophils % (auto) 0.7 % (0.0-7.0); Hemoglobin 9.7 g/dL (12.2-16.2); Lymphocytes # (auto) 1.4 10 ^3/uL (0.4-5.4); Red Blood Cells 3.73 10^6/uL (4.0-5.20)
[2024-08-14 05:55] LABS: Basophils % (auto) 0.1 % (0.0-2.0); Hematocrit 30.2 % (36.0-46.0); Mean Corpuscular Hgb Conc. 32.1 g/dL (32.0-36.0); Monocytes # (auto) 0.5 10 ^3/uL (0-1.3); Monocytes % (auto) 4.7 % (0.0-12.0); Neutrophils % (auto) 80.5 % (37.0-80.0); Nucleated Red Blood Cells % 0.2 %; Platelet Count (auto) 111 10^3/uL (140-450); Red Cell Distribution Width 17.4 % (11.8-14.3)
--- NOTE | 2024-08-14 07:36 | DVHPN2 ---
Progress Note Date Seen: Aug 14, 2024 Subjective S: Lochia minimal. Advancing diet well tolerated. Ambulating and voiding well w/o feeling dizzy or lightheaded. Pain relieved with oral analgesics. Passing flatus but no BM yet. Formula feeding as of now, but desires to breastfeed as well. vital signs Vital Sign Date Time Temp Pulse Resp B/P (MAP) Pulse Ox O2 Delivery O2 Flow Rate FiO2 08/14/24 06:55 97 Room Air 08/14/24 06:54 98.5 93 16 137/87 (104) 98.5 08/13/24 18:02 6.0 99 Total Intake and Output 08/13/24 08/13/24 08/14/24 15:00 23:00 07:00 Intake Total 500 ml Output Total 400 ml 550 ml Balance 100 ml -550 ml medications Current Medications Medications Dose Ordered Sig/Valentino Route Start Time Stop Time Status Last Admin Dose Admin Lactated Ringer's 1,000 ml @ 125 mls/hr Q8H IV 08/13/24 14:00 Ondansetron HCl 4 mg Q4HP PRN IV 08/13/24 15:15 Diphenoxylate HCl/ Atropine 5 mg Q12HR PO 08/13/24 17:00 Cefazolin Sodium 50 ml @ 100 mls/hr Q8H IV 08/13/24 23:00 08/14/24 15:29 08/14/24 06:59 Morphine Sulfate 2 mg Q4HP PRN IV 08/13/24 18:30 Hydromorphone HCl 1 mg Q3HP PRN IV 08/13/24 18:30 08/14/24 02:01 Acetaminophen 1,000 mg Q8HPRN PRN IV 08/14/24 03:00 08/15/24 02:59 08/14/24 02:59 laboratory and microbiology Laboratory Tests 08/14/24 05:18 08/13/24 14:00 Test 08/13/24 14:00 Range/Units Serum Glucose 88 74-106 mg/dL Objective A&O x3 NAD. Afebrile, VSS Chest: heart and lung sounds normal. Breasts: Nipples intact w/o cracks or soreness Abdomen: normal BS, soft, non-tender, no rebound or guarding, fundus firm @ U- 1, Lower abdominal Incision site with Sylke on, same clean, dry and intact. No edema, erythema or induration Extremities: no edema or tenderness Lochia - minimal Assessment/Plan 34yo now Post operative & ppd #1 s/p Primary Section with BTL. GDM A2. doing well. Blood Type: O Rh: Positive Formula feeding Rubella Immune Pain control with oral medications Bowel regimen: Increase fluid intake and fiber in diet, Laxative PRN Encourage ambulation Supportive care Plan discussed with: Patient Visit Coding OBGYN Date of Service: Aug 14, 2024 Billing Provider: DALTON ZAYAS CNM TRACTOR EXPERT Common Visit Codes: 73418-HFEVASCKNZ INP/OBS CARE(HIGH) DALTON ZAYAS CNM Aug 14, 2024 07:36
[2024-08-14] MEDS: LACT. RINGERS/OXYTOCIN 20UNITS 1,000 ML IV ONE (11:12)
[2024-08-14] MEDS: GUM (CHEWING) 1 GUM CHEW CHEW ONE (11:12)
[2024-08-14] MEDS: SUCCINYLCHOLINE CHLORIDE 20 MG/ML 10ML VIAL IV ONE (11:13)
[2024-08-14] MEDS: ONDANSETRON HCL 4 MG/2 ML VIAL IV ONE (11:13)
[2024-08-14] MEDS: DIPHENOXYLATE W/ATROPINE 2.5 MG TAB PO SCH (11:14)
[2024-08-14] MEDS: LACTATED RINGER'S 1,000 ML IV ONE (11:20)
[2024-08-14] MEDS ORDERED: HYDROcodone-ACET 5/325MG TAB PO PRN (11:30)
[2024-08-14] MEDS: SIMETHICONE 80 MG CHEWABLE TABLET PO SCH (12:36)
[2024-08-14] MEDS: HYDROcodone-ACET 5/325MG TAB PO PRN (15:03)
[2024-08-14] MEDS: IBUPROFEN 800 MG TAB PO PRN (23:44)
[2024-08-15] MEDS: FERROUS SULFATE 325mg EC TAB PO SCH (00:12)
[2024-08-15] MEDS: DOCUSATE SOD 100 MG CAP PO SCH (00:12)
[2024-08-15 03:00] VITALS: BP 128/79; PULSE 89; RESP 18; TEMP 97.6; O2SAT 100
--- NOTE | 2024-08-15 05:43 | DVHPN2 ---
Progress Note Date Seen: Aug 15, 2024 Subjective S: Lochia minimal. Regular diet well tolerated. Ambulating and voiding well w/o feeling dizzy or lightheaded. Pain relieved with oral analgesics. Passing flatus but no BM yet. Formula feeding w/o problem Desires and Requests to be discharged today vital signs Vital Sign Date Time Temp Pulse Resp B/P (MAP) Pulse Ox O2 Delivery O2 Flow Rate FiO2 08/15/24 03:00 97.6 89 18 128/79 (95) 100 97.6 08/14/24 19:00 Room Air 08/13/24 18:02 6.0 99 Total Intake and Output 08/14/24 08/14/24 08/15/24 15:00 23:00 07:00 Intake Total 500 ml 300 ml Output Total 450 ml 200 ml Balance -450 ml 300 ml 300 ml medications Current Medications Medications Dose Ordered Sig/Valentino Route Start Time Stop Time Status Last Admin Dose Admin Docusate Sodium 100 mg Q12HR PO 08/14/24 22:00 08/15/24 00:12 100 MG Dimethicone 80 mg QID PO 08/14/24 12:00 08/15/24 03:57 80 MG Ibuprofen 800 mg Q8HP PRN PO 08/14/24 11:30 08/14/24 23:44 800 MG Ferrous Sulfate 325 mg Q12HR PO 08/14/24 22:00 08/15/24 00:12 325 MG Acetaminophen/ Hydrocodone Bitart 1 tab Q4HPRN PRN PO 08/14/24 11:30 Acetaminophen/ Hydrocodone Bitart 2 tab Q4HPRN PRN PO 08/14/24 11:30 08/15/24 03:58 2 TAB laboratory and microbiology Laboratory Tests 08/14/24 05:18 08/13/24 14:00 Test 08/13/24 14:00 Range/Units Serum Glucose 88 74-106 mg/dL Objective O: Afebrile, VSS Chest: heart and lung sounds normal. Breasts: Nipples intact w/o cracks or soreness Abdomen: normal BS, soft, non-tender, no rebound or guarding, fundus firm @ U- 1, Lower abdominal Incision site with Sylke dressing on, same clean, dry and intact. No edema, erythema or induration Extremities: no edema or tenderness Lochia - minimal Labs Assessment/Plan 34yo now Post operative & ppd #2 s/p Primary Section with BTL doing well. Anemia Blood Type: O Rh: Positive Formula feeding Rubella Immune Pain control with oral medications Bowel regimen: Increase fluid intake and fiber in diet, Laxative PRN Discharge plan: May discharge home later today if condition remains stable Plan discussed with: Patient Visit Coding OBGYN Date of Service: Aug 15, 2024 Billing Provider: DALTON ZAYAS CNM INSTRUMENT REPAIRER HELPER Common Visit Codes: 78499-[id number] INP/OBS CARE(HIGH) DALTON ZAYAS CNM Aug 15, 2024 05:43
--- NOTE | 2024-08-15 06:10 | DVHDS2 ---
Discharge Summary Date of Admission Aug 13, 2024 at 14:00 Date of Discharge: Aug 15, 2024 Admitting Diagnosis IUP at 37weeks Macrosomia Planned BTL Primary Section with BTL Anemia Labs/Diagnostic Data: Laboratory Results Test 08/14/24 05:18 08/13/24 14:16 08/13/24 14:11 08/13/24 14:00 White Blood Count 10.0 10^3/uL (4.4-10.8) Red Blood Count 3.73 10^6/uL (4.0-5.20) Hemoglobin 9.7 g/dL (12.2-16.2) Hematocrit 30.2 % (36.0-46.0) Mean Corpuscular Volume 81.0 fL (80.0-100.0) Mean Corpuscular Hemoglobin 26.0 pg (28.0-32.0) Mean Corpuscular Hemoglobin Concent 32.1 g/dL (32.0-36.0) Red Cell Distribution Width 17.4 % (11.8-14.3) Platelet Count 111 10^3/uL (140-450) Mean Platelet Volume 10.6 fL (6.9-10.8) Neutrophils (%) (Auto) 80.5 % (37.0-80.0) Lymphocytes (%) (Auto) 14.0 % (10.0-50.0) Monocytes (%) (Auto) 4.7 % (0.0-12.0) Eosinophils (%) (Auto) 0.7 % (0.0-7.0) Basophils (%) (Auto) 0.1 % (0.0-2.0) Neutrophils # (Auto) 8.0 10 ^3/uL (1.6-8.6) Lymphocytes # (Auto) 1.4 10 ^3/uL (0.4-5.4) Monocytes # (Auto) 0.5 10 ^3/uL (0-1.3) Eosinophils # (Auto) 0.1 10 ^3/uL (0-0.8) Basophils # (Auto) 0 10 ^3/uL (0-0.2) Nucleated Red Blood Cells 0.2 % POC Glucose 95 mg/dl (70-106) Urine Color Light-yellow (Yellow) Urine Clarity Clear (Clear) Urine pH 6.0 (5.0-9.0) Urine Specific [place] 1.004 (1.001-1.035) Urine Protein Negative (Negative) Urine Ketones Negative (Negative) Urine Blood Negative /uL (Negative) Urine Nitrite Negative (Negative) Urine Bilirubin Negative (Negative) Urine Urobilinogen Normal mg/dL (Negative) Urine Leukocyte Esterase Negative /uL (Negative) Urine RBC None seen /hpf (0 - 4) Urine Microscopic WBC < 1 /HPF (0-5) Urine Squamous Epithelial Cells Few /hpf (<5) Urine Bacteria None seen /hpf (None Seen) Urine Glucose Normal mg/dL (Normal) Urine Opiates Screen Neg (NEGATIVE) Urine Fentanyl Screen Neg (NEGATIVE) Urine Barbiturates Screen Neg (NEGATIVE) Urine Phencyclidine Screen Neg (NEGATIVE) Urine Amphetamines Screen Neg (NEGATIVE) Urine Benzodiazepines Screen Neg (NEGATIVE) Urine Cocaine Screen Neg (NEGATIVE) Urine Cannabinoids Screen Neg (NEGATIVE) Prothrombin Time 9.6 sec (9.3-11.8) Prothrombin Time INR 0.90 (0.9-1.15) Activated Partial Thromboplast Time 26.2 SEC (24.5-34.5) Sodium Level 141 mmol/L (136-145) Potassium Level 3.7 mmol/L (3.5-5.1) Chloride Level 109 mmol/L (98-107) Carbon Dioxide Level 22 mmol/L (20-31) Anion Gap 10 (5-15) Blood Urea Nitrogen < 5 mg/dL (9-23) Creatinine 0.72 mg/dL (0.550-1.02) Glomerular Filtration Rate Calc 113 mL/min (>90) BUN/Creatinine Ratio 6.9 (10.0-20.0) Serum Glucose 88 mg/dL (74-106) Calcium Level 8.8 mg/dL (8.7-10.4) Total Bilirubin 0.4 mg/dL (0.2-1.0) Aspartate Amino Transferase (AST) 19 U/L (13-40) Alanine Aminotransferase (ALT) 10 U/L (7-40) Alkaline Phosphatase 197 U/L (46-116) Total Protein 5.9 g/dL (5.7-8.2) Albumin 3.5 g/dL (3.2-4.8) Hepatitis B Surface Antigen Negative (Negative) Hepatitis C Antibody Negative (Negative) HIV (1&2) Antibody Negative (Negative) Other Laboratory Tests 08/14/24 05:18 08/13/24 14:00 Brief Hx & Hospital Course: 34yo G8, now P6 admitted on 08/13/24 at 37w 1d EGA with contractions but opted for primary section with BTL due to possible macrosomia. 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 Admission CBC report showed anemia, Surgery successful, pt transfused with 2 units of RBC. Postoperative/ course otherwise non- eventful, patient meeting postoperative and milestones. Pain controlled with oral analgesics. Operations or Procedures Primary Section with BTL Condition at Discharge: Stable Final Diagnosis/Problems List same Discharge Disposition: Home Discharge Instruct/Medications Diet: Regular Diet comment: Routine regular diet rich in fiber, protein, iron and vitamin C with adequate fluid intake. Activity: No Restrictions, As Tolerated Activity comment: Unrestricted. Advance as tolerated. No heavy lifting, pushing or straining. Pelvic rest x 6weeks. Balance activities with rest periods Post operative and self care instructions given. emergency signs and symptoms including pre-eclampsia precautions and signs of PPD reviewed with patient. Follow up with OB Provider in 1 week Medications: Ibuprofen 600mg every 6 hours as needed for pain. Continue Vitamin and iron Discharge Statement: "Patient was advised to return to the ER or call 911 if any headaches, dizziness, shortness of breath, chest pain, abdominal pain, bleeding, fevers, or worsening of medical condition. Patient was counseled about treatment plan, medications, possible side effects, patientverbalized understanding. All questions were answered to the best of my ability. This discharge took greater then 30 minutes in planning, reviewing documentation, counseling the patient, and discussing with other team members." ASSESSMENT ASSESSMENT Hospital Course 34yo G8, now P6 admitted on 08/13/24 at 37w 1d EGA with contractions but opted for primary section with BTL due to possible macrosomia. 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 Admission CBC report showed anemia, Surgery successful, pt transfused with 2 units of RBC. Postoperative/ course otherwise non- eventful, patient meeting postoperative and milestones. Pain controlled with oral analgesics. Assessment same Visit Coding OBGYN Date of Service: Aug 15, 2024 Billing Provider: DALTON ZAYAS CNM [employer] Common Visit Codes: 43686-BXV/OBS DISCH DAY <30MIN DALTON ZAYAS CNM Aug 15, 2024 06:10
[2024-08-15 07:30] VITALS: BP 135/91; PULSE 86; RESP 18; TEMP 97.9; O2SAT 96; O2SAT 97
[2024-08-15 11:30] VITALS: BP 128/81; PULSE 84; RESP 18; TEMP 98.7; O2SAT 96
[2024-08-15 13:35] VITALS: BP 135/81; PULSE 86; RESP 18; TEMP 97.9; O2SAT 96
[2024-08-16 08:07] LABS: RPR Non Reactive (Non Reactive); Rubella Antibodies, IgG 1.14 index (Immune >0.99)
== END 2024-08-15 13:35 | disposition home or self-care (01) | DRG 539 ==
LOC: LDRP 13:10 → OBSVTOIN 14:00 → LDRP 08-14 00:40
PROVIDERS: ADMIT Obstetrics & Gynecology; ATTEND Obstetrics & Gynecology
PROC: 0UB70ZZ Excision of Bilateral Fallopian Tubes, Open Approach (ICD-10-PCS; 2024-08-13)
PROC: 30233N1 Transfusion of Nonautologous Red Blood Cells into Peripheral Vein, Percutaneous Approach (ICD-10-PCS; 2024-08-13)
PROC: 10D00Z1 Extraction of Products of Conception, Low, Open Approach (ICD-10-PCS; principal; 2024-08-13 15:15)
DX: O36.63X0 Maternal care for excessive fetal growth, third trimester, not applicable or unspecified (principal); O24.425 Gestational diabetes mellitus in childbirth, controlled by oral hypoglycemic drugs; O99.02 Anemia complicating childbirth; Z3A.37 37 weeks gestation of pregnancy; Z37.0 Single live birth; Z30.2 Encounter for sterilization
CPT/HCPCS: 36415; 36430; 59025; 80053; 80307; 81001; 82948; 82962; 85025; 85610; 85730; 86592; 86703; 86762; 86803; 86850; 86900; 86901; 86920; 87340; 94760; 94762; 96360; 96361; 96374; 96375; G0378; J0131; J0330